=== PATIENT | male | born 1995 ===

== ENCOUNTER → 2017-04-02 | Outpatient (CLI) | payer OTHER ==
--- NOTE | 2017-04-02 13:46 | DIAGNOSTIC IMAGING REPORT ---
RIGHT WRIST 4 VIEWS HISTORY: Right wrist pain. RIGHT SCAPHOID FX Right COMPARISON: None. FINDINGS: No acute fracture or dislocation within the right wrist. Diffuse soft tissue swelling. Specifically, the scaphoid appears intact. The carpal bones appear to be slightly osteopenic. No radiopaque foreign bodies. IMPRESSION: Diffuse soft tissue swelling within the right wrist. No acute fracture or dislocation. The carpal bones appear to be slightly osteopenic. Electronically signed by: Edis James M.D. 04/02/2017 1:45 PM Dictated Date/Time: 04/02/2017 1:43 PM
== END | disposition home or self-care (01) ==
LOC: C.RDSM 11:51
PROVIDERS: ATTEND Internal Medicine
DX: S62.009A Unspecified fracture of navicular [scaphoid] bone of unspecified wrist, initial encounter for closed fracture (principal); X58.XXXA Exposure to other specified factors, initial encounter

== ENCOUNTER → 2017-05-01 | Outpatient (CLI) | payer OTHER ==
--- NOTE | 2017-05-01 11:25 | DIAGNOSTIC IMAGING REPORT ---
RIGHT WRIST W/NAVICULAR MIN 3 VIEWS CLINICAL HISTORY: Follow-up fracture. Wrist pain. COMPARISON: Right wrist radiographs April 02, 2017. FINDINGS: There is equivocal cortical step-off within the scaphoid waist. This may reflect a scaphoid waist fracture. No additional fractures are identified on this examination. Distal right radius and ulna are intact. IMPRESSION: Subtle cortical irregularity with possible cortical step-off which may reflect a scaphoid waist fracture. Electronically signed by: Harman Tinoco M.D. 05/01/2017 11:24 AM Dictated Date/Time: 05/01/2017 11:20 AM
== END | disposition home or self-care (01) ==
LOC: C.RDSM 12:09
PROVIDERS: ATTEND Internal Medicine
DX: M25.531 Pain in right wrist (principal); M89.9 Disorder of bone, unspecified